=== PATIENT | female | born 1945 ===

== ENCOUNTER 2024-08-07 12:15 | Outpatient (REF) | payer MEDICARE, SELFPAY ==
[2024-08-07 16:04] LABS: HCT 45.4 % (36.0-46.0); HGB 14.8 g/dL (11.2-15.7); MCH 28.2 pg (27.0-33.0); MCHC 32.6 % (32.0-36.0); MCV 87 fL (80-95); MPV 9.5 fL (8.0-11.0); Platelet Count 272 10^3/uL (130-400); RBC 5.24 10^6/uL (3.93-5.22); RDW 13.6 % (11.7-14.6); RDW-SD 42.8 fL; WBC 9.37 10^3/uL (4.4-10.8)
[2024-08-07 17:15] LABS: ALT 26 U/L (14-59); AST 22 U/L (15-37); Albumin 3.8 g/dL (3.4-5.0); Alkaline Phosphatase 81 U/L (46-116); Anion Gap 7.9 mmol/L (3-11); BUN 19 mg/dL (7-18); Bilirubin, Total 0.4 mg/dL (0.2-1.0); CO2 27.1 mmol/L (21.0-32.0); Calcium 9.5 mg/dL (8.5-10.1); Calculated LDL 113 mg/dL (<100); Chloride 108 mmol/L (98-107); Cholesterol 195 mg/dL (<200); Estimated GFR 58.02 (mL/min/1.73m2); Glucose 96 mg/dL (74-106); HDL Cholesterol 54 mg/dL (>or=50); Potassium 4.5 mmol/L (3.5-5.1); Sodium 143 mmol/L (136-145); T4 7.9 ug/dL (4.7-13.3); TSH 1.44 uIU/mL (0.36-3.74); Total Protein 6.8 g/dL (6.4-8.2); Triglyceride 140 mg/dL (<150); Vitamin D 25 Total 44 ng/mL (30-100)
[2024-08-07 22:37] LABS: T3, Total 115 ng/dL (97-169)
== END 2024-08-07 12:16 | disposition home or self-care (01) ==
LOC: NCHCN 12:15
PROVIDERS: PCP Physician Assistant; Visit Provider Physician Assistant
DX: E03.9 Hypothyroidism, unspecified (principal); E55.9 Vitamin D deficiency, unspecified; G89.29 Other chronic pain; Z13.220 Encounter for screening for lipoid disorders
CPT/HCPCS: 80053; 80061; 82306; 85027; 84436; 84443; 84480